=== PATIENT | male | born 1945 | race Caucasian/White ===

== ENCOUNTER 2017-04-05 13:58 | Outpatient (CLI) | payer MEDICARE ==
[2017-04-05 14:28] LABS: #Basophils 0.1 thou/uL (0.0-0.2); #Eosinphils 0.2 thou/uL (0.0-0.7); #Lymphocytes 1.9 thou/uL (1.20-3.40); #Monocytes 0.6 thou/uL (0.11-0.59); #Neutrophils 5.6 thou/uL (1.40-6.50); %Basophils 1.4 % (0.0-1.0); %Eosinophils 1.9 % (0.0-10.0); %Lymphocytes 22.5 % (21.0-51.0); %Monocytes 7.4 % (0.0-10.0); %Neutrophils 66.8 % (42.0-75.0); Hemoglobin 18.1 g/dL (14.0-18.0); Mean Corpuscular HGB CONC 34.9 g/dL (32.0-36.0); Mean Corpuscular Hemoglobin 33.3 pg (27.0-31.0); Mean Corpuscular Volume 95.4 fl (80.0-94.0); Mean Platelet Volume 5.6 fL (7.4-10.4); Platelet Count 195 thou/uL (130-400); RBC Distribution Width 11.8 % (11.5-14.5); Red Blood Cell (RBC) Count 5.45 mill/uL (4.70-6.10); White Blood Cell (WBC) Count 8.4 thou/uL (4.8-10.8)
[2017-04-05 14:40] LABS: ALT (SGPT) 24 U/L (8-55); AST (SGOT) 20 U/L (5-34); Albumin 4.1 g/dL (3.4-4.8); Alkaline Phosphatase 73 U/L (40-150); Anion Gap 15 mmol/L (10-20); BUN (Urea Nitrogen) 10 mg/dL (8.4-25.7); Bilirubin, Total 1.2 mg/dL (0.2-1.2); Calc. Creatinine Clearance 0 mL/min (70-130); Calcium 9.2 mg/dL (7.8-10.44); Carbon Dioxide 28 mmol/L (23-31); Cardiac Risk 3.9 (Less than 4.5); Chloride 104 mmol/L (98-107); Cholesterol 207 mg/dl (< 200 Desired); Estimated GFR-MDRD 51; Globulin 2.7 g/dL (2.4-3.5); Glucose 109 mg/dL (80-115); HDL Cholesterol 53 mg/dL (>60 Neg Risk); LDL Cholesterol, Calculated 114 mg/dL; Potassium 3.7 mmol/L (3.5-5.1); Protein, Total 6.8 g/dL (5.8-8.1); Sodium 143 mmol/L (136-145); Triglycerides 200 mg/dL (Less than 150)
[2017-04-05 15:01] LABS: PSA-Asymptomatic (SCREENING) 2.96 ng/mL (0-4.0); Thyroid Stimulating Hormone 1.6016 uIU/mL (0.35-4.94)
== END 2017-04-05 13:59 | disposition home or self-care (01) ==
LOC: HPCALD 13:58
PROVIDERS: ATTEND Family Medicine
DX: Z12.5 Encounter for screening for malignant neoplasm of prostate (principal); Z13.6 Encounter for screening for cardiovascular disorders; I10 Essential (primary) hypertension
CPT/HCPCS: 36415; 80053; 80061; 84443; 85025; G0103

== ENCOUNTER 2018-05-21 09:25 | Outpatient (CLI) | payer MEDICARE ==
--- NOTE | 2018-05-21 20:12 | RAD ---
LEFT SHOULDER THREE VIEWS: 05/21/18 No fracture, dislocation, or acute cause for pain was found. There is some minor bony spurring in the AC joint and perhaps a little minor bony spurring in the glenohumeral joint. No periarticular calcif ications were seen. IMPRESSION: No acute findings. POS: HOME
== END 2018-05-21 09:26 | disposition home or self-care (01) ==
LOC: BURRAD 09:25
PROVIDERS: ATTEND Family Medicine
DX: M25.512 Pain in left shoulder (principal)

== ENCOUNTER 2020-12-06 09:48 | Outpatient (CLI) | payer MEDICARE | END 2020-12-06 09:49 | disposition home or self-care (01) | LOC: BURRAD 09:48 | PROVIDERS: ATTEND Family Medicine | DX: S60.222A Contusion of left hand, initial encounter (principal); L08.9 Local infection of the skin and subcutaneous tissue, unspecified; M19.042 Primary osteoarthritis, left hand ==

== ENCOUNTER 2024-05-07 11:11 | Outpatient (CLI) | payer MEDICARE | END 2024-05-07 11:12 | disposition home or self-care (01) | LOC: BURRAD 11:11 | PROVIDERS: ATTEND Family Medicine | DX: R05.3 Chronic cough (principal) | CPT/HCPCS: 71046 ==